=== PATIENT | female | born 1965 | race Caucasian/White ===

== ENCOUNTER 2019-01-28 14:18 | Emergency (ER) | payer OTHER ==
[~2019-01-28] VITALS: Ht 160 cm; Wt 61.3 kg
[~2019-01-28 14:18] MED LIST: ALPR0.5T6 PO; ATOR20TA38 PO; ENAL2.5T PO; IBUP-1542 PO; METF100010 PO; OXYC-279 PO; SERT-165 PO
[2019-01-28 14:33] VITALS: Ht 160 cm; Wt 61.3 kg
[2019-01-28] MEDS ORDERED: HYDROmorphONE 1 MG/ML SYG IV STA (15:51)
[2019-01-28] MEDS ORDERED: SOD CHLORIDE 0.9% 1,000 ML IV STA (15:51)
[2019-01-28] MEDS ORDERED: METOCLOPRAMIDE 10 MG INJ IV ONE (16:00)
[2019-01-28 17:00] VITALS: BP 138/79; PULSE 74; RESP 16
== END 2019-01-28 18:13 | disposition home or self-care (01) ==
LOC: E/R 14:18
DX: G43.909 Migraine, unspecified, not intractable, without status migrainosus (principal); N39.0 Urinary tract infection, site not specified; Z79.84 Long term (current) use of oral hypoglycemic drugs
CPT/HCPCS: 36415; 80053; 81001; 83690; 85025; 93005; 96374; 96375; 99284; J1170; J2765; J7030